=== PATIENT | male | born 1995 | race Caucasian/White ===

== ENCOUNTER 2021-09-13 17:34 | Observation (INO) | payer OTHER ==
[~2021-09-13] VITALS: Ht 177.8 cm; Wt 80.3 kg
[2021-09-13 19:14] LABS: HEMOGLOBIN 14.9 gm/dl (14.0-17.5); RED BLOOD COUNT 5.02 M/UL (4.20-5.50); WHITE BLOOD COUNT 18.8 K/UL (4.5-11.0)
[2021-09-13 20:25] LABS: BUN/CREATININE RATIO 10 (0-10)
[2021-09-13] MEDS ORDERED: VIBRAMYCIN100 MG PO (21:02)
[2021-09-14] MEDS ORDERED: BUPRENORPHIN-N1 EACH SL (01:24)
[2021-09-14 07:35] LABS: BUN/CREATININE RATIO 9 (0-10)
--- NOTE | 2021-09-14 13:04 | NUR ---
12:00 PATIENT SIGNING OUT AMA, EDUCATED ON RISKS OF LEAVING WITHOUT TREATMENT OR PRIOR TO COMPLETION.
[2021-09-15 08:14] LABS: HIV SCREEN 4TH GENERATION WRFX Non Reactive (Non Reactive)
[2021-09-15 10:14] LABS: HBSAG SCREEN Negative (Negative); HEPATITIS B SURF AB QUANT <3.1 mIU/mL (Immunity>9.9)
[2021-09-15 23:07] LABS: CHLAMYDIA TRACHOMATIS, NAA Negative (Negative); NEISSERIA GONORRHOEAE, NAA Positive (Negative)
== END 2021-09-14 12:25 | disposition left against medical advice (07) ==
LOC: ER1 17:34 → CDU 23:30 → PROG CARE 23:30
PROVIDERS: Internal Medicine; Physician Assistant; ADMIT Internal Medicine
DX: A41.9 Sepsis, unspecified organism (principal); N39.0 Urinary tract infection, site not specified; N50.812 Left testicular pain; E83.42 Hypomagnesemia; F19.10 Other psychoactive substance abuse, uncomplicated; F11.20 Opioid dependence, uncomplicated; Z20.822 Contact with and (suspected) exposure to COVID-19
CPT/HCPCS: 36415; 76870; 80053; 80061; 80076; 80307; 81001; 82140; 82550; 82553; 82607; 82746; 83036; 83605; 83735; 84439; 84443; 84484; 85025; 85652; 86140; 86317; 86704; 87040; 87086; 87340; 87389; 96365; 96366; 96375; G0378; J0696; J3411; J3475; J7030; U0002